=== PATIENT | male | born 1935 | race Caucasian/White ===

== ENCOUNTER 2024-08-31 08:08 | Inpatient (IN) ==
[2024-08-31 09:51] LABS: Basophils # (Auto) 0.04 K/mcL (0.00-0.30); Basophils % (Auto) 0.4 % (0.0-2.0); Eosinophils # (Auto) 0.03 K/mcL (0.00-0.70); Eosinophils % (Auto) 0.3 % (0.0-7.0); Hematocrit 39.2 % (40.1-51.0); Hemoglobin 12.8 g/dL (13.7-17.5); Lymphocytes # (Auto) 1.34 K/mcL (1.50-4.80); Lymphocytes % (Auto) 12.4 % (15.5-49.0); Mean Cell Volume 93.3 fL (80.0-100.0); Mean Corpuscular HGB Conc 32.7 g/dL (31.0-36.0); Mean Platelet Volume 11.2 fL (8.8-12.5); Monocytes # (Auto) 1.19 K/mcL (0.10-0.90); Neutrophils % (Auto) 75.7 % (38.0-78.0); Platelet Count 175 K/mcL (140-440); Red Cell Distribution Width 14.1 % (11.5-14.5); WBC 10.8 K/mcL (4.5-11.0)
[2024-08-31 10:07] LABS: Blood Urea Nitrogen 22 mg/dL (8-23); Calcium 9.2 mg/dL (8.6-10.4); Carbon Dioxide 22 mmol/L (22-30); Chloride 103 mmol/L (96-108); Glomerular Filtration Rate 44; Glucose 93 mg/dL (70-105); Potassium 4.6 mmol/L (3.3-5.1); Sodium 139 mmol/L (133-145)
[2024-08-31] MEDS: fentaNYL 100 MCG/2 ML VIAL IV ONE (14:01)
[2024-08-31] MEDS: LACTULOSE 20 GM/30 ML ORAL.SOL PO ONE (16:09)
[2024-08-31] MEDS: FLEETS ADULT 1 DOSE ENEMA PR ONE (16:10)
[2024-08-31] MEDS ORDERED: ONDANSETRON 4 MG/2 ML VIAL IV PRN (16:28)
[2024-08-31] MEDS: ACETAMINOPHEN 325 MG TABLET PO PRN (20:08)
[2024-08-31] MEDS: traMADol 50 MG TABLET PO PRN (20:09)
[2024-08-31] MEDS: POLYETHYLENE GLYCOL 3350 17 GM PACKET PO PRN (20:10)
[2024-08-31] MEDS: SENNOSIDES 1 TABLET PO SCH (20:10)
[2024-08-31] MEDS: 0.9 % SODIUM CHLORIDE 10 ML SYRINGE IV SCH (20:10)
[2024-08-31] MEDS: morphine 4 MG/ML VIAL IV PRN (20:49)
[2024-09-01 06:22] LABS: Basophils # (Auto) 0.04 K/mcL (0.00-0.30); Basophils % (Auto) 0.6 % (0.0-2.0); Eosinophils # (Auto) 0.27 K/mcL (0.00-0.70); Eosinophils % (Auto) 4.1 % (0.0-7.0); Hematocrit 34.4 % (40.1-51.0); Hemoglobin 11.2 g/dL (13.7-17.5); Lymphocytes # (Auto) 1.21 K/mcL (1.50-4.80); Lymphocytes % (Auto) 18.5 % (15.5-49.0); Mean Cell Volume 94.2 fL (80.0-100.0); Mean Corpuscular HGB Conc 32.6 g/dL (31.0-36.0); Mean Platelet Volume 10.2 fL (8.8-12.5); Monocytes # (Auto) 0.77 K/mcL (0.10-0.90); Monocytes % (Auto) 11.8 % (1.0-12.0); Neutrophils % (Auto) 64.8 % (38.0-78.0); Platelet Count 145 K/mcL (140-440); RBC 3.65 M/mcL (4.63-6.08); Red Cell Distribution Width 14.4 % (11.5-14.5); WBC 6.5 K/mcL (4.5-11.0)
[2024-09-01 07:16] LABS: Blood Urea Nitrogen 22 mg/dL (8-23); Calcium 8.4 mg/dL (8.6-10.4); Carbon Dioxide 24 mmol/L (22-30); Chloride 105 mmol/L (96-108); Glomerular Filtration Rate 48; Glucose 84 mg/dL (70-105); Potassium 4.1 mmol/L (3.3-5.1); Sodium 138 mmol/L (133-145)
[2024-09-01] MEDS ORDERED: QUEtiapine 25 MG TABLET PO SCH (09:00)
[2024-09-01] MEDS ORDERED: METOPROLOL TARTRATE 50 MG TABLET PO SCH (09:00)
[2024-09-01] MEDS ORDERED: DONEPEZIL 10 MG TABLET PO SCH (09:00)
[2024-09-01] MEDS ORDERED: RIVAROXABAN 15 MG TABLET PO SCH (09:00)
[2024-09-01] MEDS: 0.9 % SODIUM CHLORIDE 1,000 ML IV SCH (15:38)
[2024-09-01] MEDS: RIVAROXABAN 15 MG TABLET PO SCH (17:27)
[2024-09-01] MEDS: DONEPEZIL 10 MG TABLET PO SCH (21:05)
[2024-09-01] MEDS: QUEtiapine 25 MG TABLET PO SCH (21:05)
[2024-09-01] MEDS: METOPROLOL TARTRATE 50 MG TABLET PO SCH (21:05)
[2024-09-02 06:49] LABS: ALT/SGPT 10 U/L (<40); AST/SGOT 21 U/L (<40); Albumin 3.2 gm/dL (3.2-5.2); Albumin/Globulin Ratio 1.3 (1.0-2.3); Alkaline Phosphatase 53 U/L (39-117); Bilirubin,Direct 0.4 mg/dL (<0.3); Bilirubin,Total 0.9 mg/dL (0.1-1.0); Blood Urea Nitrogen 28 mg/dL (8-23); Calcium 8.4 mg/dL (8.6-10.4); Carbon Dioxide 21 mmol/L (22-30); Chloride 106 mmol/L (96-108); Globulin 2.4 gm/dL (2.2-3.7); Glomerular Filtration Rate 48; Glucose 68 mg/dL (70-105); Lactate Dehydrogenase 203 U/L (135-225); Phosphorous 3.5 mg/dL (2.5-4.5); Potassium 4.3 mmol/L (3.3-5.1); Sodium 138 mmol/L (133-145); Triglycerides 65 mg/dL (<150); Uric Acid 5.4 mg/dL (2.5-8.0)
[2024-09-02] MEDS: TAMSULOSIN 0.4 MG CAPSULE PO ONE (11:13)
[2024-09-02] MEDS: DOCUSATE SODIUM 100 MG CAPSULE PO SCH (11:14)
[2024-09-02 14:22] LABS: Appearance,Urine CLEAR (Clear); Bilirubin,Urine Negative (Negative); Color,Urine YELLOW; Glucose,Urine (UA) Negative (Negative); Ketones,Urine 20 mg/dL (Negative); Leukocyte Esterase,Urine Negative /uL (Negative); Nitrate,Urine Negative (Negative); Protein,Urine Negative (Negative); Urine Blood Negative (Negative); Urobilinogen,Urine Negative
[2024-09-02 15:28] LABS: Amphetamine Screen,Urine None detected; Barbiturate Screen,Urine None detected; Benzodiazepines Screen,Urine None detected; Cannabinoid Screen,Urine None detected; Cocaine Screen,Urine None detected; Fentanyl, Urine Screen Suspect Positive; Opiate Screen,Urine Suspect Positive; Oxycodone, Urine Screen None detected; Phencyclidine Screen,Urine None detected
[2024-09-02] MEDS: TAMSULOSIN 0.4 MG CAPSULE PO SCH (21:44)
[2024-09-03 06:47] LABS: Blood Urea Nitrogen 25 mg/dL (8-23); Calcium 8.6 mg/dL (8.6-10.4); Carbon Dioxide 24 mmol/L (22-30); Chloride 105 mmol/L (96-108); Glomerular Filtration Rate 53; Glucose 90 mg/dL (70-105); Potassium 4.2 mmol/L (3.3-5.1); Sodium 138 mmol/L (133-145)
[2024-09-07 14:09] LABS: Opiate Screen Positive ng/mL (Cutoff=300)
== END 2024-09-03 12:48 | DRG 543 ==
LOC: ED 08:08 → MEDSUR 16:19
PROVIDERS: ADMIT Student in an Organized Health Care Education/Training Program; ATTEND Internal Medicine

== ENCOUNTER 2024-10-05 16:39 | Inpatient (IN) ==
[2024-10-05] MEDS: ACETAMINOPHEN 1,000 MG/100 ML BAG IV ONE (17:00)
[2024-10-05 17:17] LABS: Basophils # (Auto) 0.06 K/mcL (0.00-0.30); Basophils % (Auto) 0.7 % (0.0-2.0); Eosinophils # (Auto) 0.46 K/mcL (0.00-0.70); Eosinophils % (Auto) 5.5 % (0.0-7.0); Hematocrit 36.3 % (40.1-51.0); Hemoglobin 11.7 g/dL (13.7-17.5); Lymphocytes # (Auto) 1.04 K/mcL (1.50-4.80); Lymphocytes % (Auto) 12.4 % (15.5-49.0); Mean Cell Volume 93.6 fL (80.0-100.0); Mean Corpuscular HGB Conc 32.2 g/dL (31.0-36.0); Mean Platelet Volume 10.2 fL (8.8-12.5); Monocytes # (Auto) 0.89 K/mcL (0.10-0.90); Monocytes % (Auto) 10.6 % (1.0-12.0); Neutrophils % (Auto) 70.7 % (38.0-78.0); Platelet Count 154 K/mcL (140-440); RBC 3.88 M/mcL (4.63-6.08); Red Cell Distribution Width 14.1 % (11.5-14.5); WBC 8.4 K/mcL (4.5-11.0)
[2024-10-05 17:20] LABS: INR 1.5 (0.9-1.1); Prothrombin Time 18.4 sec (11.9-14.5)
[2024-10-05 17:28] LABS: ALT/SGPT 13 U/L (<40); AST/SGOT 23 U/L (<40); Albumin 3.5 gm/dL (3.2-5.2); Albumin/Globulin Ratio 1.3 (1.0-2.3); Alkaline Phosphatase 70 U/L (39-117); Blood Urea Nitrogen 22 mg/dL (8-23); Calcium 8.7 mg/dL (8.6-10.4); Carbon Dioxide 23 mmol/L (22-30); Chloride 105 mmol/L (96-108); Globulin 2.8 gm/dL (2.2-3.7); Glomerular Filtration Rate 44; Glucose 130 mg/dL (70-105); Potassium 4.4 mmol/L (3.3-5.1); Sodium 140 mmol/L (133-145)
[2024-10-05] MEDS ORDERED: QUEtiapine 25 MG TABLET PO PRN (21:49)
[2024-10-05] MEDS ORDERED: MAG HYDROX/AL HYDROX/SIMETH 30 ML ORAL.SUSP PO PRN (21:51)
[2024-10-05] MEDS ORDERED: ACETAMINOPHEN 325 MG TABLET PO PRN (21:51)
[2024-10-05] MEDS ORDERED: traZODone HCL 50 MG TABLET PO PRN (21:51)
[2024-10-05] MEDS ORDERED: CALCIUM CARBONATE 500 MG TAB.CHEW CHEWED PRN (21:51)
[2024-10-05] MEDS ORDERED: ONDANSETRON 4 MG/2 ML VIAL IV PRN (21:51)
[2024-10-05] MEDS ORDERED: MAGNESIUM HYDROXIDE 30 ML ORAL.SUSP PO PRN (21:51)
[2024-10-05] MEDS ORDERED: oxyCODONE IR 5 MG TABLET PO PRN (21:51)
[2024-10-05] MEDS: DOCUSATE SODIUM 100 MG CAPSULE PO SCH (22:50)
[2024-10-05] MEDS: METOPROLOL SUCCINATE 50 MG TAB.XL.24H PO SCH (22:50)
[2024-10-05] MEDS: TAMSULOSIN 0.4 MG CAPSULE PO SCH (22:51)
[2024-10-05] MEDS: SENNOSIDES 1 TABLET PO SCH (22:51)
[2024-10-05] MEDS: MELATONIN 3 MG TABLET PO SCH (22:51)
[2024-10-05] MEDS: 0.9 % SODIUM CHLORIDE 10 ML SYRINGE IV SCH (23:30)
[2024-10-06] MEDS: DEXTROSE 5%-1/2NS 1,000 ML IV SCH (05:59)
[2024-10-06 06:30] LABS: Blood Urea Nitrogen 22 mg/dL (8-23); Calcium 8.7 mg/dL (8.6-10.4); Carbon Dioxide 22 mmol/L (22-30); Chloride 104 mmol/L (96-108); Glomerular Filtration Rate 48; Glucose 96 mg/dL (70-105); Potassium 4.4 mmol/L (3.3-5.1); Sodium 138 mmol/L (133-145)
[2024-10-06 07:05] LABS: Basophils % (Manual) 2 % (0-2); Eosinophils % (Manual) 8 % (0-7); Lymphocytes % 17 % (15-49); Monocytes % (Manual) 8 % (1-12); Platelet Estimate DECREASED (Normal); RBC Morphology NORMAL (Normal); Segmented Neutrophils % 65 % (38-78)
[2024-10-06 07:06] LABS: Hematocrit 36.5 % (40.1-51.0); Mean Cell Volume 92.4 fL (80.0-100.0); Mean Corpuscular HGB Conc 32.9 g/dL (31.0-36.0); Platelet Count 99 K/mcL (140-440); RBC 3.95 M/mcL (4.63-6.08); WBC 8.4 K/mcL (4.5-11.0)
[2024-10-06 07:10] LABS: Appearance,Urine CLEAR (Clear); Bilirubin,Urine Negative (Negative); Color,Urine YELLOW; Glucose,Urine (UA) 50 mg/dL (Negative); Ketones,Urine Negative (Negative); Leukocyte Esterase,Urine Negative /uL (Negative); Nitrate,Urine Negative (Negative); Protein,Urine 30 mg/dL (Negative); Specific Gravity,Urine 1.028 (1.000-1.035); Urine Blood Negative (Negative); Urine Granular Cast 3 /lph (0-0); Urine RBC 0 /hpf (0-3); Urine Squamous Epithelial Cell 0 /hpf (0-4); Urine WBC 0 /hpf (0-4); Urobilinogen,Urine Negative
[2024-10-06] MEDS: QUEtiapine 25 MG TABLET PO SCH (08:54)
[2024-10-06] MEDS ORDERED: METOCLOPRAMIDE 10 MG/2 ML VIAL ONE (10:52)
[2024-10-06] MEDS ORDERED: PHENYLephrine 1 MG/10 ML SYRINGE (ANEST) ONE (10:52)
[2024-10-06] MEDS ORDERED: DEXAMETHASONE 10 MG/ML VIAL ONE (10:52)
[2024-10-06] MEDS ORDERED: ONDANSETRON 4 MG/2 ML VIAL ONE (10:52)
[2024-10-06] MEDS ORDERED: GLYCOPYRROLATE 0.2 MG/ML VIAL IV ONE (10:52)
[2024-10-06] MEDS ORDERED: FAMOTIDINE/PF 20 MG/2 ML VIAL IV ONE (10:52)
[2024-10-06] MEDS ORDERED: ePHEDrine 50 MG/5 ML SYRINGE (ANEST) IV ONE (10:52)
[2024-10-06] MEDS ORDERED: LIDOCAINE 2% PF 5 ML VIAL ONE (10:52)
[2024-10-06] MEDS ORDERED: TRANEXAMIC ACID 1,000 MG/10 ML VIAL ONE (10:52)
[2024-10-06] MEDS ORDERED: PROPOFOL 200 MG/20 ML VIAL IV ONE (10:53)
[2024-10-06] MEDS ORDERED: KETAMINE 50 MG/ML ML ONE (10:54)
[2024-10-06] MEDS ORDERED: ceFAZolin 1 GM VIAL ONE (12:21)
[2024-10-06] MEDS ORDERED: HYDROmorphone 0.5 MG/0.5 ML SYRINGE ONE ×2 (13:01→13:20)
[2024-10-06] MEDS ORDERED: SUGAMMADEX SODIUM 200 MG/2 ML VIAL IV ONE (13:06)
[2024-10-06] MEDS: VANCOMYCIN 1 GM VIAL TOPICAL SCH (13:07)
[2024-10-06] MEDS ORDERED: IPRATROPIUM/ALBUTEROL 3 ML AMPUL.NEB NEB PRN (13:12)
[2024-10-06] MEDS ORDERED: NALOXONE HCL 0.4 MG/ML VIAL IV PRN (13:12)
[2024-10-06] MEDS ORDERED: fentaNYL 100 MCG/2 ML VIAL IV PRN (13:12)
[2024-10-06] MEDS ORDERED: ONDANSETRON 4 MG/2 ML VIAL IV PRN (13:12)
[2024-10-06] MEDS ORDERED: BISACODYL 10 MG SUPP.RECT PR PRN (13:17)
[2024-10-06] MEDS ORDERED: MAGNESIUM HYDROXIDE 30 ML ORAL.SUSP PO PRN (13:17)
[2024-10-06] MEDS ORDERED: BENZOCAINE/MENTHOL 1 LOZENGE PO PRN (13:17)
[2024-10-06] MEDS ORDERED: FLEETS ADULT 1 DOSE ENEMA PR PRN (13:17)
[2024-10-06] MEDS ORDERED: POLYETHYLENE GLYCOL 3350 17 GM PACKET PO PRN (13:17)
[2024-10-06] MEDS ORDERED: ROPIVACAINE HCL/PF 30 ML VIAL IJ ONE (13:41)
[2024-10-06] MEDS: TRANEXAMIC ACID 1,000 MG/10 ML VIAL IV ONE (14:40)
[2024-10-06] MEDS: TRANEXAMIC ACID 1,000 MG/10 ML VIAL ONE (14:43)
[2024-10-06] MEDS: LACTATED RINGERS 1,000 ML IV SCH (14:58)
[2024-10-06] MEDS: ceFAZolin 2 GM in DEXTROSE 5% IN WATER 50 ML IV SCH (15:31)
[2024-10-06] MEDS: HYDROmorphone 0.5 MG/0.5 ML SYRINGE IV PRN (18:09)
[2024-10-06] MEDS: ceFAZolin 1 GM VIAL IV SCH (20:41)
[2024-10-06] MEDS: SENNOSIDES 1 TABLET PO SCH (23:07)
[2024-10-06] MEDS: DONEPEZIL 10 MG TABLET PO SCH (23:07)
[2024-10-06] MEDS: ASPIRIN 81 MG TAB.CHEW PO SCH (23:08)
[2024-10-07 06:15] LABS: Blood Urea Nitrogen 24 mg/dL (8-23); Calcium 8.2 mg/dL (8.6-10.4); Carbon Dioxide 21 mmol/L (22-30); Chloride 102 mmol/L (96-108); Glomerular Filtration Rate 53; Glucose 166 mg/dL (70-105); Potassium 4.3 mmol/L (3.3-5.1); Sodium 135 mmol/L (133-145)
[2024-10-07 06:16] LABS: Basophils # (Auto) 0.01 K/mcL (0.00-0.30); Basophils % (Auto) 0.1 % (0.0-2.0); Eosinophils # (Auto) 0 K/mcL (0.00-0.70); Eosinophils % (Auto) 0 % (0.0-7.0); Hemoglobin 10.8 g/dL (13.7-17.5); Lymphocytes # (Auto) 0.56 K/mcL (1.50-4.80); Lymphocytes % (Auto) 6.2 % (15.5-49.0); Mean Corpuscular HGB Conc 32.7 g/dL (31.0-36.0); Mean Platelet Volume 10.2 fL (8.8-12.5); Monocytes # (Auto) 0.84 K/mcL (0.10-0.90); Monocytes % (Auto) 9.2 % (1.0-12.0); Neutrophils % (Auto) 84.4 % (38.0-78.0); Platelet Count 145 K/mcL (140-440); RBC 3.55 M/mcL (4.63-6.08); Red Cell Distribution Width 13.7 % (11.5-14.5); WBC 9.1 K/mcL (4.5-11.0)
[2024-10-07 06:41] LABS: INR 1.3 (0.9-1.1); Prothrombin Time 16.5 sec (11.9-14.5)
[2024-10-07] MEDS: HYDROCODONE/APAP 7.5/325MG TABLET PO PRN (08:54)
[2024-10-07] MEDS: METHOCARBAMOL 750 MG TABLET PO PRN (08:55)
[2024-10-07] MEDS: IBUPROFEN 600 MG TABLET PO PRN (20:15)
[2024-10-08 06:16] LABS: Hematocrit 30.8 % (40.1-51.0); Hemoglobin 9.9 g/dL (13.7-17.5)
[2024-10-08 07:28] LABS: INR 1.3 (0.9-1.1); Prothrombin Time 16.8 sec (11.9-14.5)
[2024-10-08 11:51] VITALS: TEMP 97.1; O2SAT 98
[2024-10-08] MEDS: RIVAROXABAN 15 MG TABLET PO SCH (13:41)
== END 2024-10-08 14:40 | DRG 956 ==
LOC: ED 16:39 → MEDSUR 21:51
PROVIDERS: ADMIT Internal Medicine; ATTEND Internal Medicine
PROC: HEMIHIP (2024-10-06 12:16)